=== PATIENT | female | born 1945 | race Hispanic/Latino ===

== ENCOUNTER 2025-10-19 07:24 | Observation (INO) | payer OTHER ==
[2025-10-15 11:16] LABS: IMMATURE GRANULOCYTE ABSOLUTE 0.02 K/uL (0-1); NUCLEATED RED BLOOD CELLS 0.0 % (0.0-0.19); PLATELET COUNT (AUTO) 270 K/uL (130-400); RED BLOOD CELL COUNT(AUTO) 3.60 MIL/uL (4.00-5.50); RED CELL DISTRIBUTION WIDTH 14.1 % (11.0-15.5); WHITE BLOOD COUNT (AUTO) 8.7 K/uL (4.8-10.8)
[2025-10-15 11:28] LABS: CREATININE 2.6 mg/dL (0.5-1.0); GLOMERULAR FILTR. RATE CALC 18.0 mL/min (>90); GLUCOSE,RANDOM 121.0 mg/dL (70-105); SODIUM SERUM 139.0 mmol/L (136-145); UREA NITROGEN, BLOOD 39.0 mg/dL (7-18)
[2025-10-15 11:29] LABS: APPEARANCE,URINE CLEAR (CLEAR); GLUCOSE, URINE (UA) NEGATIVE (NEGATIVE); LEUKOCYTE ESTERASE ,URINE 75 Leu/uL (NEGATIVE); NITRATE,URINE NEGATIVE (NEGATIVE); OCCULT BLOOD,URINE NEGATIVE (NEGATIVE)
[2025-10-15 11:30] LABS: ADD UA MICROSCOPIC YES
--- NOTE | 2025-10-15 11:30 | NUR ---
IS INITIAL DONE BY REA RT
[2025-10-15 11:42] VITALS: BP 147/67; PULSE 92; RESP 18; TEMP 98.2
--- NOTE | 2025-10-15 11:46 | NUR ---
pt unable to provide a slow steady breath. Pt was advised to breath as steady as she can. Addendum: 10/15/25 at 1147 by RT OLIVIA RT Amended: Links added.
[2025-10-15 11:47] LABS: SQUAMOUS EPITHELIAL CELL,UR RARE /HPF (0-2)
--- NOTE | 2025-10-18 15:06 | NUR ---
RE: URINE CX REPORTED URINE CX/SENSITIVITIES TO DR RUSSELL. RECEIVED ORDERS FOR GENTAMICIN 240MG IVPB TO BE GIVEN IN OR HOLDING IN AM.
[2025-10-19] VITALS (22 sets, daily range): BP systolic 102–148; BP diastolic 40–78; PULSE 58–86; RESP 13–18; TEMP 97.3–98; O2SAT 96
[~2025-10-19] VITALS: Ht 154.9 cm; Wt 62.8 kg
[2025-10-19] MEDS ORDERED: LIDOCAINE PF 100MG/5ML (2%) SYRINGE 5ML ONE (07:44)
[2025-10-19] MEDS ORDERED: MIDAZOLAM HCL 1 MG/ML 2ML VIAL ONE (07:47)
[2025-10-19] MEDS ORDERED: TRANEXAMIC ACID 1000MG/10ML ONE (08:09)
[2025-10-19] MEDS ORDERED: VANCOMYCIN 500MG+NS 100ML 100 ML IV ONE (08:10)
[2025-10-19] MEDS ORDERED: PROMETHAZINE HCL 25 MG/ML 1ML AMPULE IM PRN (10:00)
[2025-10-19] MEDS: TRANEXAMIC ACID 1000MG/10ML IV ONE (10:11)
[2025-10-19] MEDS: VANCOMYCIN 500MG VIAL IJ ONE (10:25)
[2025-10-19] MEDS ORDERED: GLYCOPYRROLATE 0.2 MG/ML 5 ML VIAL ONE (10:31)
[2025-10-19] MEDS ORDERED: NEOSTIGMINE METHYLSULFATE 1MG/ML IV ONE (11:18)
[2025-10-19] MEDS ORDERED: FERROUS FUMARATE 324 MG TABLET PO PRN (12:00)
[2025-10-19] MEDS ORDERED: PoTASSium chl 10% ELIXIR 20MEQ 20 MEQ/15 ML UDCUP PO PRN (12:00)
[2025-10-19] MEDS ORDERED: PoTASSium chloRIDE 20MEQ ER 20 MEQ ERTAB PO PRN (12:00)
[2025-10-19] MEDS ORDERED: CALCIUM CARB 500MG PO PRN (12:00)
[2025-10-19] MEDS ORDERED: HYDROcodone/APAP 5/325 1 TAB TABLET PO PRN (12:00)
--- NOTE | 2025-10-19 12:09 | OP ---
Operative Note: DATE OF PROCEDURE: 10/19/25 SURGEON: AYDEN RUSSELL MD [place] [employer] SUPERVISOR: [Mary Henson CFA] ANESTHESIA: [General anesthesia plus regional block] ANESTHESIOLOGIST/OFFICE CLERK ROUTINE: [Galo Jacobsen CRNA] PREOPERATIVE DIAGNOSIS: [Right knee osteoarthritis] POSTOPERATIVE DIAGNOSIS: [Right knee osteoarthritis] IMPLANTS: [Biomet vanguard. Femur right PS 65 mm. Tibial liner size 10 x 63/67 PS. Tibial plate size 67 fixed cruciate. Patella size 31 x 8 mm asymmetric] PROCEDURE: [Right total knee arthroplasty] ESTIMATED BLOOD LOSS: [100 mL] INDICATIONS: [Patient is a 79-year-old female who has history of osteoarthritis of the right knee that of the longer responded to treatment and has been admitted for a right total knee arthroplasty. The patient understood the procedure, risks, benefits and possible complications and agreed to sign the consent form] DESCRIPTION OF PROCEDURE: [After adequate general anesthesia was achieved and regional block obtained the right lower extremity was prepped and draped in the usual manner previous placement of the tourniquet in the proximal thigh. The extremity was then elevated and exsanguinated with an Esmarch bandage and the tourniquet inflated to 250 mmHg the Esmarch band been then removed. With the knee in flexion a longitudinal incision was then made in the anterior aspect through the skin followed by dissection of the subcutaneous tissue. A bone infusion needle was then inserted just medial to the tibial tuberosity and through this needle we injected into the bone a solution of normal saline 50 mL mixed with 500 mg of vancomycin. The needle was removed. A paramedian approach was then made with the Bovie cautery cutting through the quadriceps tendon, medial patellar retinaculum and patellar tendon retinaculum. The retropatellar tendon fat was then excised and the soft tissue elements of the tibia were elevated subperiosteally and retractors were applied medially and laterally . The anterior and posterior cruciate ligaments were resected. With the use of a drill a starting hole was made in the distal femur entering the intramedullary canal and then after removal of the drill an intramedullary guide was inserted with a 5 degree valgus block that touched the distal femur and to this the dis desean femoral cutting guide was then applied anteriorly and was secured to the distal femur with the use of pins. The intramedullary guide was then removed and with the use of the oscillating saw we proceeded to resect the distal femur removing the fragments and the guide. The femoral sizer was then applied distally and drill holes were made removing the sizer and the 4-in-1 cutting block was then inserted and the anterior, posterior and chamfer cuts were made removing the fragments and the block. The PS cutting guide was then inserted and the intercondylar cut was made removing the fragment and the guide. The posterior cruciate ligament retractor was then inserted posterior to the tibia and this was brought forward proceeding then to apply the external tibial alignment guide and secured the proximal cutting guide to the tibia with the use of pins. With the use of the oscillating saw the proximal cut to the tibia tibia was made. The bone fragment was removed and the trial tibia plate was chosen. At this point the menisci were removed sharply and with the use of the curved osteotome the posterior osteophytes of the femur were removed. The trial components were then inserted at the femur and tibia with a trial tibial liner bringing the knee into extension noticing that the patient had a very stable knee in flexion, extension and with valgus and varus stress. The knee was maintained in extension and the patella was then addressed proceeding to measure its thickness and then with the use of the oscillating saw we removed nine mm from the articular surface and restored the height with application of a trial component after 3 peg holes were made. The patellofemoral ligament was removed and then the patellofemoral tracking was checked noticing to be normal. At this moment all the components were removed, the tibia after the metaphyseal defect was created and while cement was being mixed on the back table we proceeded to irrigate the joint with antibiotic solution and then cover the entry to the femoral canal with a bone plug. Once the cement was ready we proceeded to apply it first to the tibia surface inserting the final component and then to the femoral surface and inserted the final component removing the excess cement and then applying a trial liner bringing the knee into extension for compression. Then we proceeded to irrigate the patella surface and dried it applying then bone cement and the final patellar component was inserted and was secured with application of a clamp. The joint was irrigated with a warm diluted Betadine solution while the cement dried followed by irrigation with antibiotic solution. The trial liner was removed as well as the patellar clamp and we proceeded then to irrigate the posterior aspect of the joint to remove all the remaining debris and the final tibial liner was inserted and locked against the tibia. The range of motion was checked and noticed to be adequate with full extension and flexion, no laxity in valgus or varus stress and with adequate patellofemoral tracking. The patient had no anterior or posterior drawer. The tourniquet was then deflated and this was followed by hemostasis and the wound was then closed with approximation of the quadriceps tendon, patellar retinaculum and patellar tendon retinaculum with #1 Vicryl close stitches alternating with #1 Ethibond stitches, and closure of the subcutaneous tissue with 2-0 Monocryl inverted stitches and the skin was closed with 3-0 Monocryl subcuticularly. The wound was covered with a suction dressing followed by application of an Daniel bandage for compression and the drapes were then removed transferring the patient to the hospital bed and taken to recovery room for follow-up by anesthesia. There were no complications during the procedure.] AYDEN RUSSELL MD Oct 19, 2025 12:09
[2025-10-19] MEDS: TRANEXAMIC ACID 1000MG/10ML ONE (12:31)
[2025-10-19] MEDS: GENTAmicin SULFate 80 MG/2 ML 240 MG in 0.9%NACL 100ML 100 ML IV ONE (13:35)
[2025-10-19] MEDS: 0.9%NACL 1000ML 1,000 ML IV SCH (13:49)
--- NOTE | 2025-10-19 16:15 | NUR ---
ORTHO COORDINATOR: TEACHING REGARDING DVT AND PNEUMONIA PREVENTION, PAIN EXPECTATIONS AND PAIN MANAGEMENT. PATIENT IN BED, B SCD SLEEVES IN PLACE AND FUNCTIONING. NEHAL WRAP TO RIGHT KNEE, ICE PACK TO RIGHT KNEE. CORRINA DRESSING SYSTEM INTACT, LIGHT FLASHING GREEN. CORRINA SYSTEM REVIEWED WITH PATIENT. PATIENT INSTRUCTED DRESSING TO BE REMOVED 7 DAYS FROM SURGERY, ON SATURDAY. INCENTIVE SPIROMETER AT BEDSIDE. PATIENT RETURN DEMONSTRATED PROPER USE OF INCENTIVE SPIROMETER AND VERBALIZED PROPER FREQUENCY OF USE. PATIENT RETURN DEMONSTRATED PROPER FOOT FLEXION AND EXTENSION EXERCISES, RATIONALE PROVIDED. PAIN MANAGEMENT STRATEGY REVIEWED. PATIENT REPORTS STAGE 4 KIDNEY DISEASE AND ONLY TAKES TYLENOL SPARINGLY. PRIMARY NURSE AWARE AND REACHING OUT TO SURGEON FOR ADDITIONAL OPTIONS. PATIENT INTENDS TO DISCHARGE TO REHAB. REHAB PROCESS AND EXPECTATIONS REVIEWED. SET EXPECTATION FOR PATIENT TO SHOWER TOMORROW, RATIONALE PROVIDED. NO ADDITIONAL QUESTIONS OR CONCERNS AT THIS TIME.
[2025-10-19] MEDS: ASPIRIN 81 MG EC TAB PO SCH (20:40)
--- NOTE | 2025-10-19 20:48 | NUR ---
REFUSED ASA PATIENT REFUSED TO TAKE THE ASPIRIN 81 MG ENTERIC COATED TABLET STATING "MY KIDNEY DOCTOR TOLD ME I CAN'T TAKE ASPIRIN ANYMORE".
[2025-10-19] MEDS ORDERED: NITROFURANTOIN MONOHYD/M-CRYST 100 MG CAPSULE PO SCH (21:00)
[2025-10-20] VITALS (7 sets, daily range): BP systolic 121–141; BP diastolic 53–69; PULSE 68–86; RESP 16–18; TEMP 98–98.7; O2SAT 96–98
[2025-10-20 04:10] LABS: NUCLEATED RED BLOOD CELLS 0.0 % (0.0-0.19); PLATELET COUNT (AUTO) 204.0 K/uL (130-400); RED BLOOD CELL COUNT(AUTO) 2.8 MIL/uL (4.00-5.50); RED CELL DISTRIBUTION WIDTH 14.2 % (11.0-15.5); WHITE BLOOD COUNT (AUTO) 12.1 K/uL (4.8-10.8)
[2025-10-20 04:20] LABS: CREATININE 2.7 mg/dL (0.5-1.0); GLOMERULAR FILTR. RATE CALC 17.0 mL/min (>90); GLUCOSE,RANDOM 130.0 mg/dL (70-105); SODIUM SERUM 139.0 mmol/L (136-145); UREA NITROGEN, BLOOD 37.0 mg/dL (7-18)
[2025-10-20] MEDS: Vitamin B Complex/Vit C/Folic Acid PO SCH (07:56)
[2025-10-20] MEDS: amLODIPine 5 MG TAB PO SCH (08:01)
--- NOTE | 2025-10-20 08:06 | NUR ---
ivf's held pt tolerating diet well
--- NOTE | 2025-10-20 08:14 | PN ---
This morning patient is awake alert and oriented. Reporting adequate pain control. Vital signs have been stable. Afebrile. Voiding on her own. Laboratory results reviewed. Noted to have a drop in hemoglobin and hematocrit as expected after TKA. Patient is currently asymptomatic we will continue to observe and treat per protocol as necessary. Elvated K+ will address with protocol. Reinforced incentive spirometry. Bilateral SCD sleeves are on. Daniel bandage has been removed the jon dressing is intact Negative Homans. Distal neurovascular exam intact. Ice present to extremity. She is pending physical therapy this morning.But ambulated yesterday down the hunt. The anticipated discharge goal for patient is SNF. I have advised the patient's try to spend majority of the day out of bed and alternating extension and flexion with the use of the footstool. Discussed the with the patient the need to take aspirin therapy to avoid DVT versus taking Eliquis. Patient has agreed to aspirin regimen. Assessment: Status post right total knee arthroplasty. Acute postoperative blood loss anemia. Hyperkalemia Plan: Continue with Dr. Balderas was TKA protocol and discharge planning. Acute postoperative blood loss anemia addressed with protocol as necessary Hyperkalemia addressed with protocol Vitals/Labs Vital Signs Date Time Temp Pulse Resp B/P (MAP) Pulse Ox O2 Delivery O2 Flow Rate FiO2 10/20/25 04:00 98.2 68 18 130/53 97 Room Air 10/19/25 20:00 0 21 Laboratory Tests 10/20/25 03:54 Medications Current Medications Gentamicin Sulfate 1 each ONCE ONCE IV; Start 10/19/25 at 07:30; Stop 10/19/25 at 07:31; Status DC Gentamicin Sulfate 240 mg/ Sodium Chloride 100 ml @ 100 mls/hr ONCE ONCE IV; Start 10/19/25 at 07:30; Stop 10/19/25 at 08:29; Status DC Cefazolin Sodium 2 gm STK-MED ONCE .ROUTE; Start 10/19/25 at 07:24; Stop 10/19/25 at 07:24; Status DC Lidocaine HCl 100 mg STK-MED ONCE .ROUTE; Start 10/19/25 at 07:44; Stop 10/19/25 at 07:45; Status DC Ondansetron HCl 4 mg STK-MED ONCE .ROUTE; Start 10/19/25 at 07:44; Stop 10/19/25 at 07:45; Status DC Dexamethasone Sodium Phosphate 10 mg STK-MED ONCE .ROUTE; Start 10/19/25 at 07:44; Stop 10/19/25 at 07:45; Status DC Propofol 200 mg STK-MED ONCE IV; Start 10/19/25 at 07:47; Stop 10/19/25 at 07:47; Status DC Midazolam HCl 2 mg STK-MED ONCE .ROUTE; Start 10/19/25 at 07:47; Stop 10/19/25 at 07:47; Status DC Rocuronium [place] 50 mg STK-MED ONCE .ROUTE; Start 10/19/25 at 07:48; Stop 10/19/25 at 07:48; Status DC Fentanyl Citrate 100 mcg STK-MED ONCE .ROUTE; Start 10/19/25 at 07:48; Stop 10/19/25 at 07:48; Status DC Tranexamic Acid 1,000 mg STK-MED ONCE .ROUTE; Start 10/19/25 at 08:09; Stop 10/19/25 at 08:10; Status DC Cefazolin Sodium 1 gm STK-MED ONCE .ROUTE; Start 10/19/25 at 08:10; Stop 10/19/25 at 08:10; Status DC Vancomycin HCl 100 ml @ As Directed STK-MED ONCE IV; Start 10/19/25 at 08:10; Stop 10/19/25 at 08:10; Status DC Ondansetron HCl 4 mg AD PRN IVP; Start 10/19/25 at 10:00; Stop 10/19/25 at 13:10; Status DC Metoclopramide HCl 10 mg AD PRN IVP; Start 10/19/25 at 10:00; Stop 10/19/25 at 13:10; Status DC Promethazine HCl 25 mg AD PRN IM; Start 10/19/25 at 10:00; Stop 10/19/25 at 13:10; Status DC Ketorolac Tromethamine 30 mg AD PRN IV; Start 10/19/25 at 10:00; Stop 10/19/25 at 09:51; Status DC Morphine Sulfate 2 mg AD PRN IVP; Start 10/19/25 at 10:00; Stop 10/19/25 at 13:10; Status DC Fentanyl Citrate 25 mcg Q5MIN PRN IVP Last administered on 10/19/25at 12:32; Start 10/19/25 at 10:00; Stop 10/19/25 at 13:10; Status DC Naloxone HCl 0.1 mg AD PRN IVP; Start 10/19/25 at 10:00; Stop 10/19/25 at 13:10; Status DC Ropivacaine 150 mg STK-MED ONCE .ROUTE; Start 10/19/25 at 09:44; Stop 10/19/25 at 09:44; Status DC Rocuronium [place] 50 mg STK-MED ONCE .ROUTE; Start 10/19/25 at 10:21; Stop 10/19/25 at 10:21; Status DC Ephedrine Sulfate 50 mg STK-MED ONCE .ROUTE; Start 10/19/25 at 10:30; Stop 10/19/25 at 10:30; Status DC Glycopyrrolate 1 mg STK-MED ONCE .ROUTE; Start 10/19/25 at 10:31; Stop 10/19/25 at 10:31; Status DC Cefazolin Sodium 2 gm STK-MED ONCE IVPB Last administered on 10/19/25at 10:09; Start 10/19/25 at 10:09; Stop 10/19/25 at 10:42; Status DC Tranexamic Acid 1,000 mg STK-MED ONCE IV Last administered on 10/19/25at 10:11; Start 10/19/25 at 10:11; Stop 10/19/25 at 10:42; Status DC Vancomycin HCl 500 mg STK-MED ONCE IJ Last administered on 10/19/25at 10:25; Start 10/19/25 at 10:25; Stop 10/19/25 at 10:42; Status DC Neostigmine Methylsulfate 10 mg STK-MED ONCE IV; Start 10/19/25 at 11:18; Stop 10/19/25 at 11:17; Status DC Fentanyl Citrate 100 mcg STK-MED ONCE .ROUTE; Start 10/19/25 at 11:19; Stop 10/19/25 at 11:20; Status DC Sodium Chloride 1,000 ml @ 100 mls/hr Q10H IV Last administered on 10/19/25at 21:55; Start 10/19/25 at 12:00; Stop 10/20/25 at 11:59 Polyethylene Glycol 17 gm DAILY PO Last administered on 10/20/25at 08:01; Start 10/20/25 at 09:00; Stop 11/19/25 at 08:59 Bisacodyl 10 mg DAILY PRN RC; Start 10/22/25 at 12:00; Stop 11/21/25 at 11:59 Ferrous Fumarate 324 mg DAILY PRN PO; Start 10/19/25 at 12:00; Stop 11/18/25 at 11:59 Ondansetron HCl 4 mg Q6H PRN IVP; Start 10/19/25 at 12:00; Stop 11/18/25 at 11:59 Calcium Carbonate 500 mg Q12H PRN PO; Start 10/19/25 at 12:00; Stop 11/18/25 at 11:59 Diphenhydramine HCl 25 mg Q6H PRN IVP; Start 10/19/25 at 12:00; Stop 11/18/25 at 11:59 Cefazolin Sodium 2 gm Q8H IVP Last administered on 10/20/25at 01:32; Start 10/19/25 at 17:00; Stop 10/20/25 at 01:01; Status DC Potassium Chloride 100 ml @ 100 mls/hr AD PRN IV; Start 10/19/25 at 12:00; Stop 11/18/25 at 11:59 Potassium Chloride 20 meq AD PRN PO; Start 10/19/25 at 12:00; Stop 11/18/25 at 11:59 Potassium Chloride 20 meq AD PRN PO; Start 10/19/25 at 12:00; Stop 11/18/25 at 11:59 Acetaminophen/ Hydrocodone Bitart Q4H PRN PO; Start 10/19/25 at 12:00; Stop 10/19/25 at 14:55; Status DC Aspirin 81 mg BID PO Last administered on 10/20/25at 08:01; Start 10/19/25 at 21:00; Stop 11/18/25 at 20:59 Fentanyl Citrate 100 mcg STK-MED ONCE .ROUTE; Start 10/19/25 at 12:27; Stop 10/19/25 at 12:28; Status DC Tranexamic Acid 1,000 mg STK-MED ONCE .ROUTE Last administered on 10/19/25at 12:31; Start 10/19/25 at 12:28; Stop 10/19/25 at 12:28; Status DC Cefazolin Sodium 1 gm STK-MED ONCE IRRIG Last administered on 10/19/25at 10:22; Start 10/19/25 at 10:22; Stop 10/19/25 at 15:05; Status DC Amlodipine Besylate 5 mg DAILY PO Last administered on 10/20/25at 08:01; Start 10/20/25 at 09:00; Stop 11/19/25 at 08:59 Losartan Potassium 25 mg DAILY PO Last administered on 10/20/25at 08:01; Start 10/20/25 at 09:00; Stop 11/19/25 at 08:59 Vitamin B Complex/ Vit C/Folic Acid 1 cap DAILY PO Last administered on 10/20/25at 08:01; Start 10/20/25 at 09:00; Stop 11/19/25 at 08:59 Atorvastatin Calcium 5 mg HS PO Last administered on 10/19/25at 20:40; Start 10/19/25 at 21:00; Stop 11/18/25 at 20:59 Home Med ([VitD3] 1 TAB) DAILY PO; Start 10/20/25 at 09:00; Stop 11/19/25 at 08:59 Levothyroxine Sodium 50 mcg SYN PO Last administered on 10/20/25at 05:32; Start 10/20/25 at 06:30; Stop 11/19/25 at 06:29 Ketorolac Tromethamine 15 mg Q6H PRN IV; Start 10/19/25 at 16:30; Stop 10/19/25 at 16:30; Status DC Tramadol HCl 50 mg Q6H PO Last administered on 10/20/25at 04:13; Start 10/19/25 at 16:30; Stop 10/24/25 at 16:29 Acetaminophen 500 mg Q6H PRN PO; Start 10/19/25 at 16:30; Stop 11/18/25 at 16:29 Nitrofurantoin Macrocrystals 100 mg BID PO; Start 10/19/25 at 21:00; Stop 10/19/25 at 16:33; Status DC ANG[facility] G[facility]INO [facility] Oct 20, 2025 08:14
--- NOTE | 2025-10-20 11:11 | NUR ---
[facility] CM MET WITH PT THIS MORNING, INITIAL ASSESSMENT DONE. PATIENT IS SEMI-INDEPENDENT PRIOR TO SURGERY, LIVES AT HOME ALONE, BROTHER LIVES NEXT DOOR. AT HOME PT VERBALIZED SHE HAS A STANDARD WALKER, CANE, SHOWER CHAIR THAT BELONGS TO HER MOTHER IF NEEDED. DENIES ANY OTHER EQUIPMENT/SERVICES. FEELS SAFE TO GO BACK HOME, STILL DRIVE OCCASIONALLY, PT VERBALIZED HER 6 SISTERS AND BROTHER ABLE TO ASSIST WITH TRANSPORTATION AND NEEDS NECESSARY. DISCUSSED MD RECOMMENDATIONS FOR HOME W/HH, PT REQUESTING SHORT TERM REHAB AT SNF INSTEAD, GIVEN IN NETWORK FACILITIES, CONSENT SIGNED PAULA FOR [facility]. [facility] ONCE APPROVED. CM TO CONTINUE TO FOLLOW UP. Addendum: 10/20/25 at 1113 by TUCKER HENLEY LVN Amended: Links added.
--- NOTE | 2025-10-20 16:20 | NUR ---
ORTHO COORDINATOR: PATIENT SLEEPING, LEFT UNDISTURBED.
[2025-10-21 00:02] VITALS: BP 160/65; PULSE 77; RESP 19; TEMP 97.9
[2025-10-21 04:00] VITALS: BP 134/61; PULSE 72; RESP 18; TEMP 98
[2025-10-21 08:00] VITALS: O2SAT 97
[2025-10-21 12:00] VITALS: BP 138/96; PULSE 90; RESP 18; TEMP 97.6
[2025-10-21 16:00] VITALS: BP_SYST 130; BP_SYST 146; BP_DIAS 38; BP_DIAS 55; PULSE 85; PULSE 90; RESP 18; TEMP 97.5; TEMP 98.2
--- NOTE | 2025-10-21 16:47 | DS ---
[Date of admission: 10/19/2025 Date of discharge: 10/21/2020 Final diagnosis: Right Knee osteoarthritis. UTI on admission Surgical procedures: Right total Knee arthroplasty on 07/2025 Summary of History and Physical: The patient is a 79 year-old female with history of severe arthrosis to the right knee that has been present for several years and has been treated conservatively with no longer adequate response to treatment. The patient is being admitted for total knee arthroplasty. Previous medical history: Stage 4 kidney disease, hypertension, hypercholesterolemia Previous surgical history: Denies Family history: No family history documented Social history: Negative for use of tobacco or alcohol. Allergies: NKDA. Review of system: Negative on admission Hospital course: The patient was admitted and taken to the operating room for a total knee arthroplasty, procedure that went uneventful. Postoperatively the patient remained hemodynamically stable and afebrile. The patient received antibiotic and anticoagulation prophylaxis as per protocol. The patient was evaluated by physical therapy and started rehabilitation treatment with ambulation with the use of walker, weightbearing as tolerated, range of motion exercises and bed transfers. The patient was also evaluated by case management and arrangements were made for discharge. The patient tolerated diet well. On postop day #2 all the arrangements were completed, and the patient was dismissed. Condition on discharge: Good Disposition: The patient will be dismissed to a snf facility . Follow-up will be done at the office in 3 weeks. The patient is to continue with physical therapy and rehabilitation at the facility and be ambulatory with the use of a walker, weightbearing as tolerated. Continue taking pain medication as instructed as well as anticoagulation prophylaxis. Zosyn to complete a 10 day course of antibiotic therapy for her UTI Continue with home medications also as instructed and continue with pre admission diet.] AYDEN RUSSELL MD Oct 21, 2025 16:47
[2025-10-21] MEDS ORDERED: HYDROcodone/APAP 5/325 1 TAB TABLET PO PRN (17:30)
--- NOTE | 2025-10-21 18:28 | NUR ---
REPORT TO [facility] AWAITING TRANSPORTATION DC SL DRESSING TO REMOVAL SITE [facility]ANDO WELL DC INSTRUCTION GIVEN DC PAPERS SIGNED ESCORTED [facility]IA [facility] FROM [facility]
== END 2025-10-21 18:30 | disposition home or self-care (01) ==
LOC: DAH 07:24 → DAHIP 11:53 → 4CH 13:28
PROVIDERS: ADMIT Orthopaedic Surgery; ATTEND Orthopaedic Surgery
DX: M17.11 Unilateral primary osteoarthritis, right knee (principal); E78.00 Pure hypercholesterolemia, unspecified; E87.5 Hyperkalemia; I10 Essential (primary) hypertension; D62 Acute posthemorrhagic anemia; N39.0 Urinary tract infection, site not specified; M25.561 Pain in right knee; Z79.899 Other long term (current) drug therapy; Z98.890 Other specified postprocedural states
CPT/HCPCS: 80048 ×2; 85025; 87086 ×2; 87186; 81001; 36415 ×2; 87641; 27447; 96374; 64447; 88311; 88304; 97161; 97116 ×4; 97530 ×6; 96376; 85027; 97164; G0378 ×54; A4600; A4223 ×2; A4663; J7120; J3010 ×3; J0690 ×6; J3490 ×7; J1100; J7030; J2003; J1580; J2250; J2704; J2405; J2710; J2795; J3373 ×2; A9272; A4649 ×3; A4930 ×2; C1713; C1776; A5120; A4215; A4213; A4222; A4221; A4216